=== PATIENT | female | born 1990 | race Caucasian/White ===

== ENCOUNTER 2019-09-10 19:39 | Emergency (ER) | payer SELFPAY ==
[~2019-09-10] VITALS: Ht 160 cm; Wt 83.0 kg
[2019-09-10 19:45] VITALS: Ht 160 cm; Wt 83.0 kg
[2019-09-10 23:55] VITALS: BP 120/59
== END 2019-09-11 02:20 | disposition left against medical advice (07) ==
LOC: ED 19:39
DX: S06.0X0A Concussion without loss of consciousness, initial encounter (principal); S16.1XXA Strain of muscle, fascia and tendon at neck level, initial encounter; S93.401A Sprain of unspecified ligament of right ankle, initial encounter; Z98.890 Other specified postprocedural states; W18.30XA Fall on same level, unspecified, initial encounter; Y93.89 Activity, other specified; Y92.89 Other specified places as the place of occurrence of the external cause; Y99.8 Other external cause status
CPT/HCPCS: J1885; Q0092; Q0162